=== PATIENT | male | born 1975 | race Caucasian/White ===

== ENCOUNTER 2020-10-21 09:12 | Emergency (ER) | payer OTHER ==
[~2020-10-21] VITALS: Ht 182.9 cm; Wt 77.1 kg
[2020-10-21 10:04] LABS: ABSOLUTE EOSINOPHILS 0.2 thou/uL (0.0-0.7); ABSOLUTE LYMPHOCYTES 1.6 thou/uL (0.8-5.3); ABSOLUTE MONOCYTES 0.6 thou/uL (0.0-1.2); ABSOLUTE NEUTROPHILS 4.4 thou/uL (1.6-8.1); BASOPHILS 0.4 %; EOSINOPHILS 2.8 %; HEMATOCRIT 40.8 % (42.0-52.0); HEMOGLOBIN 14.4 gm/dL (14.0-18.0); LYMPHOCYTES 23.8 %; MCH 29.1 pg (26.0-34.0); MCHC 35.3 g/dL (28.0-37.0); MCV 82.4 fL (80.0-100.0); MONOCYTES 8.5 %; MPV 7.2 fl. (7.2-11.1); NUCLEATED RBCS 0 /100WBC; PLATELET COUNT* 253 thou/uL (150-400); POLYS 64.5 %; RBC 4.95 mil/uL (4.50-6.00); RDW-CV 13.8 % (10.5-14.5); WBC 6.8 thou/uL (4.0-11.0)
[2020-10-21 10:09] LABS: CALCIUM 8.9 mg/dL (8.5-10.1); CREATININE 1.1 mg/dL (0.6-1.3); POTASSIUM 4.1 mmol/L (3.5-5.1)
[2020-10-21 10:13] LABS: ALBUMIN 3.7 g/dL (3.4-5.0); TOTAL BILIRUBIN 0.6 mg/dL (<0.1-1.0); TOTAL PROTEIN 7.4 g/dL (6.4-8.2)
[2020-10-21] MEDS ORDERED: NAPROSYN500 MG PO (11:36)
[2020-10-21] MEDS ORDERED: CIPRO500 M1 PO (11:36)
[2020-10-21] MEDS ORDERED: ZOFRAN ODT4 MG PO (11:36)
[2020-10-21] MEDS ORDERED: FLAGYL500 M1 PO (11:36)
[2020-10-21 11:50] VITALS: BP 116/65
--- NOTE | 2020-10-21 14:38 | EKG ---
[place] [address] ELECTROCARDIOGRAM REPORT Name: CORINNE MUNOZ JR Room: [facility]#: [id number] Admission: 10/21/20 Attend Phys: Discharge: 10/21/20 Date of : 73 Date of Service: 10/21/20 1042 Report #: [id number] THIS REPORT FOR: //name// [facility] ED Test Date: 2020-10-21 Test Time: 10:42:59 Pat Name: CORINNE MUNOZ Department: Room: Gender: [employer] Operator: [facility] : 1975 Requested By: Michael Weiss Order Number: [id number] MD: Layo Clay Measurements Intervals [place] Rate: 60 P: 4 ID: 139 QRS: 40 QRSD: 94 T: 38 QT: 412 QTc: 412 Interpretive Statements Sinus rhythm ST elev, probable normal early repol pattern No previous ECG available for comparison Electronically Signed On 10-21-2020 14:38:39 CDT by Layo Clay [email or web address] <ELECTRONICALLY SIGNED> By: Layo Clay MD, [facility] 10/21/20 1438 1042 1042 Layo Clay MD, [facility] /EPI
== END 2020-10-21 11:52 | disposition home or self-care (01) ==
LOC: M.ERS 09:12
PROVIDERS: Emergency Medicine Emergency Medical Services
DX: K57.32 Diverticulitis of large intestine without perforation or abscess without bleeding (principal); Z90.89 Acquired absence of other organs

== ENCOUNTER → 2021-01-02 | Emergency (ER) | payer OTHER ==
[~2021-01-02] VITALS: Ht 182.9 cm; Wt 79.4 kg
[~2021-01-02] MED LIST: CIPRO500 M1 PO; FLAGYL500 M1 PO; NAPROSYN500 MG PO; VISTARIL 25 MG25 M1 PO; ZOFRAN ODT4 MG PO
[2021-01-02 12:30] LABS: ABSOLUTE BASOPHILS 0.1 thou/uL (0.0-0.2); ABSOLUTE EOSINOPHILS 0.1 thou/uL (0.0-0.7); ABSOLUTE LYMPHOCYTES 2.6 thou/uL (0.8-5.3); ABSOLUTE MONOCYTES 0.6 thou/uL (0.0-1.2); ABSOLUTE NEUTROPHILS 3.8 thou/uL (1.6-8.1); BASOPHILS 0.8 %; EOSINOPHILS 1.2 %; HEMATOCRIT 43.1 % (42.0-52.0); HEMOGLOBIN 15.1 gm/dL (14.0-18.0); LYMPHOCYTES 36.1 %; MCH 28.6 pg (26.0-34.0); MCV 81.7 fL (80.0-100.0); MONOCYTES 8.7 %; NUCLEATED RBCS 0 /100WBC; PLATELET COUNT* 285 thou/uL (150-400); POLYS 53.2 %; RBC 5.28 mil/uL (4.50-6.00); RDW-CV 13.7 % (10.5-14.5); WBC 7.1 thou/uL (4.0-11.0)
[2021-01-02 12:40] LABS: CALCIUM 9.2 mg/dL (8.5-10.1); CREATININE 1.3 mg/dL (0.6-1.3); POTASSIUM 3.3 mmol/L (3.5-5.1)
[2021-01-02 12:45] LABS: ALBUMIN 4.3 g/dL (3.4-5.0); TOTAL BILIRUBIN 0.9 mg/dL (<0.1-1.0); TOTAL PROTEIN 8.1 g/dL (6.4-8.2)
[2021-01-02 13:30] VITALS: BP 124/82
--- NOTE | 2021-01-03 11:48 | EKG ---
[place] [address] ELECTROCARDIOGRAM REPORT Name: CORINNE MUNOZ JR Room: [facility]#: [id number] Admission: 01/02/21 Attend Phys: Discharge: Date of : 73 Date of Service: 01/02/21 1207 Report #: [id number] THIS REPORT FOR: //name// [facility] ED Test Date: 2021-01-02 Test Time: 12:07:49 Pat Name: CORINNE MUNOZ Department: Room: Gender: [employer] Consultant: [facility] : 1975 Requested By: Edinson Christiansen Order Number: [id number] MD: Zaki Jenkins Measurements Intervals [place] Rate: 77 P: 41 NC: 115 QRS: 60 QRSD: 94 T: 56 QT: 376 QTc: 426 Interpretive Statements Sinus rhythm Atrial premature complexes Borderline short NC interval Baseline wander in lead(s) II,III,aVF Compared to ECG 10/21/2020 10:42:59 Atrial premature complex(es) now present ST (T wave) deviation no longer present Electronically Signed On 01-03-2021 11:48:05 CDT by Zaki Jenkins [email or web address] <ELECTRONICALLY SIGNED> By: Yesenia Jenkins MD, [facility] 01/03/21 1148 1207 1207 Yesenia Jenkins MD, [facility] /EPI
== END ==
LOC: M.ERS 12:08
PROVIDERS: Physician Assistant
DX: F41.9 Anxiety disorder, unspecified (principal); R07.89 Other chest pain; Z90.89 Acquired absence of other organs